=== PATIENT | male | born 1970 | race Caucasian/White ===

== ENCOUNTER 2018-11-19 13:17 | Outpatient (RCR) | payer MEDICARE ==
[2018-11-19] MEDS ORDERED: LIDOCAINE VISC 2% SOLN 15 ML UDC ONE (18:27)
== END 2018-12-01 ==
LOC: WCC 13:17
PROVIDERS: ATTEND Plastic Surgery
DX: E11.69 Type 2 diabetes mellitus with other specified complication (principal); I87.311 Chronic venous hypertension (idiopathic) with ulcer of right lower extremity; I87.332 Chronic venous hypertension (idiopathic) with ulcer and inflammation of left lower extremity; L97.829 Non-pressure chronic ulcer of other part of left lower leg with unspecified severity; L97.819 Non-pressure chronic ulcer of other part of right lower leg with unspecified severity; L97.519 Non-pressure chronic ulcer of other part of right foot with unspecified severity; L03.818 Cellulitis of other sites; I87.2 Venous insufficiency (chronic) (peripheral); I89.0 Lymphedema, not elsewhere classified; R60.0 Localized edema; I10 Essential (primary) hypertension; E66.3 Overweight; E78.41 Elevated Lipoprotein(a)